=== PATIENT | female | born 1960 | race Caucasian/White ===

== ENCOUNTER 2022-03-01 09:24 | Day surgery (SDC) | payer OTHER ==
[~2022-03-01] VITALS: Ht 162.6 cm; Wt 108.2 kg
[2022-03-01] MEDS ORDERED: HYGROTON 2525 MG/TAB PO (09:59)
[2022-03-01 10:00] VITALS: BP 147/97; PULSE 79; TEMP 99
[2022-03-01] MEDS ORDERED: PEPCID COMPLETE1 CTB PO (10:20)
[2022-03-01 11:40] VITALS: BP 145/99; PULSE 78; TEMP 97.4
[2022-03-01 11:55] VITALS: BP 133/91; PULSE 58
== END 2022-03-01 12:35 | disposition home or self-care (01) ==
LOC: SDCO 09:24
DX: Z12.11 Encounter for screening for malignant neoplasm of colon (principal); K31.7 Polyp of stomach and duodenum; K29.50 Unspecified chronic gastritis without bleeding; D12.3 Benign neoplasm of transverse colon; D12.5 Benign neoplasm of sigmoid colon; I10 Essential (primary) hypertension; K57.30 Diverticulosis of large intestine without perforation or abscess without bleeding; K64.1 Second degree hemorrhoids
CPT/HCPCS: J2704; J7120